=== PATIENT | male | born 1945 | race Caucasian/White ===

== ENCOUNTER 2018-10-24 08:25 | Observation (INO) ==
--- NOTE | 2018-10-24 08:31 | Emergency Department Note ---
Disposition Clinical Impression: Left hand paresthesia, Left facial numbness Disposition: Admitted As Inpatient Condition: Good General Adult HPI - General Chief complaint: ED Neuro Symptoms/Deficit Stated complaint: Left arm and facial numbness Time Seen by Provider: 10/24/18 08:29 Source: patient Limitations: no limitations - History of Present Illness Pain Scale: 0 - Related Data Home Medications Medication Instructions Recorded Confirmed Atorvastatin [Lipitor] 20 mg PO HS 01/08/17 10/24/18 Cholecalciferol (Vitamin D3) 2,000 unit PO DAILY 01/08/17 10/24/18 [Vitamin D] Multivitamin/Iron/Folic Acid 1 each PO DAILY 01/08/17 10/24/18 [Centrum Complete Multivit Tab] RX: Aspirin 81 mg PO DAILY 01/08/17 10/24/18 RX: Lisinopril-HCTZ 20-12.5 1 each PO DAILY 01/08/17 10/24/18 [Prinzide 20-12.5] Tamsulosin [Flomax] 0.4 mg PO HS 01/08/17 10/24/18 amLODIPine [Norvasc] 5 mg PO HS 01/08/17 10/24/18 Allergies Allergy/AdvReac Type Severity Reaction Status Date / Time No Known Allergies Allergy Verified 10/24/18 15:44 Past Medical History - Past Medical History Medical history: Reports: hyperlipidemia, hypertension Psychiatric history: Reports: no psych history - Social History Smoking Status: Never smoker Smokeless Tobacco Status: No Alcohol use: Reports: occasionally Drug use: Reports: none Physical Exam - General Limitations: no limitations General appearance: alert, in no apparent distress Course Vital Signs Temperature 97.5 F L 10/24/18 08:26 Pulse Rate 79 10/24/18 08:26 Respiratory Rate 18 10/24/18 08:26 Blood Pressure 145/56 10/24/18 08:26 O2 Sat by Pulse Oximetry 99 10/24/18 08:26 Temperature 98.0 F 10/24/18 16:09 Pulse Rate 54 10/24/18 16:09 Respiratory Rate 16 10/24/18 16:09 Blood Pressure 154/77 10/24/18 16:09 O2 Sat by Pulse Oximetry 98 10/24/18 16:09 Oxygen Delivery Oxygen Delivery Room Air Medical Decision Making - Lab Data Result diagrams: 10/24/18 08:30 10/24/18 08:30 Lab Results 10/24/18 10/24/18 10/24/18 Range/Units 08:30 08:30 08:30 WBC 7.8 (4.3-11.1) K/mcL RBC 4.86 (4.19-5.50) M/mcL Hgb 14.8 (12.9-16.9) g/dL Hct 43.9 (37.5-50.1) % MCV 90.3 (83.0-100.0) fL MCH 30.5 (28.0-33.3) pg MCHC 33.7 (31.6-35.5) g/dL RDW 13.5 (11.5-14.5) % Plt Count 175 (140-400) K/mcL MPV 9.9 (9.4-12.4) fL PT 11.4 (9.4-12.1) Seconds INR 1.0 APTT 29.6 (26.0-36.0) Seconds Sodium 140 (136-145) mEq/L Potassium 3.8 (3.5-5.1) mEq/L Chloride 105 (98-107) mEq/L Carbon Dioxide 28 (23-29) mEq/L BUN 13 (8-23) mg/dL Creatinine 0.89 (0.70-1.30) mg/dL Est GFR ( Amer) > 60 (> 60) Est GFR (Non-Af Amer) > 60 (> 60) BUN/Creatinine Ratio 15 (6-26) Glucose 204 H (70-105) mg/dL POC Glucose (70-99) mg/dL Est Mean Plasma Glucose mg/dl Hemoglobin A1c ( - 5.6) % Calculated Osmolality 296 (280-300) Calcium 8.8 (8.6-10.3) mg/dL Total Bilirubin 0.7 (0.3-1.0) mg/dL Direct Bilirubin 0.1 (0.0-0.2) mg/dL Indirect Bilirubin 0.6 (0.0-1.2) mg/dL AST 20 (13-39) Units/L ALT 19 (7-52) Units/L Alkaline Phosphatase 72 (34-104) Units/L Troponin I < 0.03 (< 0.04) ng/mL Serum Total Protein 6.2 L (6.4-8.9) g/dL Albumin 3.9 (3.5-5.7) g/dL Globulin 2.3 L (2.4-3.5) g/dL Albumin/Globulin Ratio 1.7 (1.1-2.2) Triglycerides 108 (< 150) mg/dL Cholesterol 114 (< 200) mg/dL LDL Cholesterol, Calc 49 (0-99) mg/dL VLDL Cholesterol, Calc 22 (< 31) mg/dL HDL Cholesterol 43 (40-59) mg/dL Cholesterol/HDL Ratio 2.7 (0-4.9) 10/24/18 10/24/18 Range/Units 08:30 08:32 WBC (4.3-11.1) K/mcL RBC (4.19-5.50) M/mcL Hgb (12.9-16.9) g/dL Hct (37.5-50.1) % MCV (83.0-100.0) fL MCH (28.0-33.3) pg MCHC (31.6-35.5) g/dL RDW (11.5-14.5) % Plt Count (140-400) K/mcL MPV (9.4-12.4) fL PT (9.4-12.1) Seconds INR APTT (26.0-36.0) Seconds Sodium (136-145) mEq/L Potassium (3.5-5.1) mEq/L Chloride (98-107) mEq/L Carbon Dioxide (23-29) mEq/L BUN (8-23) mg/dL Creatinine (0.70-1.30) mg/dL Est GFR ( Amer) (> 60) Est GFR (Non-Af Amer) (> 60) BUN/Creatinine Ratio (6-26) Glucose (70-105) mg/dL POC Glucose 181 H (70-99) mg/dL Est Mean Plasma Glucose 120 mg/dl Hemoglobin A1c 5.8 H ( - 5.6) % Calculated Osmolality (280-300) Calcium (8.6-10.3) mg/dL Total Bilirubin (0.3-1.0) mg/dL Direct Bilirubin (0.0-0.2) mg/dL Indirect Bilirubin (0.0-1.2) mg/dL AST (13-39) Units/L ALT (7-52) Units/L Alkaline Phosphatase (34-104) Units/L Troponin I (< 0.04) ng/mL Serum Total Protein (6.4-8.9) g/dL Albumin (3.5-5.7) g/dL Globulin (2.4-3.5) g/dL Albumin/Globulin Ratio (1.1-2.2) Triglycerides (< 150) mg/dL Cholesterol (< 200) mg/dL LDL Cholesterol, Calc (0-99) mg/dL VLDL Cholesterol, Calc (< 31) mg/dL HDL Cholesterol (40-59) mg/dL Cholesterol/HDL Ratio (0-4.9) Attestation Statement - Attestation Attestation: I examined this patient and my medical decision-making was reviewed with the Resident Physician. I agree with the documented findings, disposition and treatment plan as described except to the extent set forth below. [id number] time provided Patient arrives with symptoms that started approximately 30 minutes ago. He complains of left-sided face and upper extremity numbness and tingling. He appears in no acute distress on exam. Please see resident physician's note for detailed neurologic exam, including NIH score. Triage note and vitals reviewed by me I attest to supervising the resident physician's interpretation of ECG
--- NOTE | 2018-10-24 08:42 | Emergency Department Note ---
Disposition Clinical Impression: Left hand paresthesia, Left facial numbness Disposition: Admitted As Inpatient Condition: Good Referrals: Daljit Reyes MD [Primary Care Provider] - Forms: ED Satisfaction Letter Time of Disposition: 09:21 Neuro HPI - General Chief Complaint: ED Neuro Symptoms/Deficit Stated Complaint: Left arm and facial numbness Time Seen by Provider: 10/24/18 08:29 Source: patient, family Limitations: no limitations Nursing Notes Reviewed: Yes Vital Signs Reviewed: Yes - History of Present Illness HPI Narrative: 73-year-old male history of hypertension and hyperlipidemia presents with left arm numbness in facial numbness. States waken up around 0600, approx 3 hours prior to awakening. At that time he felt his normal self. Approximately 40 minutes prior to evaluation 0 800 patient reports using the restroom when he went to flush the toilet and felt numbness along his left hand that radiated up his body into his face. He denies any weakness. Did report some slurring of the speech. Denies any fall or head trauma. He reports a history of similar symptoms several years ago that resolved [place]. He takes a baby aspirin daily. Denies any other complaints such as fever, cough, chest pain, shortness of breath. Denies any neck pain. Onset of Symptoms Date: 10/24/18 Onset of Symptoms Time: 08:00 Symptom Onset Unknown: No Timing confirmed by: spouse Location: speech, left face, left arm History of same: Yes Severity: mild Quality: numbness, tingling, constant Symptoms Improving: Yes Improves with: time Context: sudden onset On Anticoagulants: No Associated symptoms: Reports: denies other symptoms Treatments Prior to Arrival: none - Related Data Home Medications: Home Medications Medication Instructions Recorded Confirmed Aspirin 81 mg PO DAILY 01/08/17 01/10/17 Atorvastatin [Lipitor] 20 mg PO HS 01/08/17 01/10/17 Cholecalciferol (Vitamin D3) 2,000 unit PO DAILY 01/08/17 01/10/17 [Vitamin D] Lisinopril-HCTZ 20-12.5 [Prinzide 1 each PO DAILY 01/08/17 01/10/17 20-12.5] Multivitamin/Iron/Folic Acid 1 each PO DAILY 01/08/17 01/10/17 [Centrum Complete Multivit Tab] Tamsulosin [Flomax] 0.4 mg PO DAILY 01/08/17 01/10/17 amLODIPine [Norvasc] 5 mg PO DAILY 01/08/17 01/10/17 Allergies/Adverse Reactions: Allergies Allergy/AdvReac Type Severity Reaction Status Date / Time No Known Allergies Allergy Verified 01/08/17 10:29 All systems ED: reviewed and negative except as stated. Review of Systems: As Per HPI Constitutional: Denies: fever, chills, weakness ENT ED: Denies: congestion Cardiovascular: Denies: chest pain Respiratory: Denies: dyspnea Gastrointestinal: Denies: abdominal pain, nausea, vomiting Genitourinary: Denies: dysuria Musculoskeletal: Denies: back pain, neck pain, myalgia Integumentary: Denies: rash, abrasion Neurological: Reports: numbness, paresthesias. Denies: headache, weakness, confusion Past Medical History - Past Medical History Attestation: Yes The following information was validated with the patient. Source: patient Medical history: Reports: hyperlipidemia, hypertension Psychiatric history: Reports: no psych history - Social History Smoking Status: Never smoker Smokeless Tobacco Status: No Alcohol use: Reports: occasionally Drug use: Reports: none Physical Exam - General Limitations: no limitations General appearance: alert, in no apparent distress - Head Head exam: atraumatic, normocephalic, normal inspection, other (bald) - Expanded Head Exam Head exam physicial: Present: abrasion (old healing abrasion to right forehead/scalp) - Eye Eye exam: Present: normal appearance, PERRL, EOMI. Absent: nystagmus - ENT ENT exam: normal exam, normal oropharynx, mucous membranes moist - Neck Neck exam: Present: normal inspection, full ROM, trachea midline. Absent: tenderness - Expanded Neck Exam Neck exam focused ED: Absent: midline tenderness - Chest Chest inspection: Present: normal inspection, symmetric chest wall rise - Respiratory Respiratory exam: Present: normal lung sounds bilaterally. Absent: respiratory distress, wheezes - Cardiovascular Cardiovascular exam: Present: regular rate, normal rhythm, normal heart sounds - Expanded Cardiovascular Exam Peripheral pulses: 2+: radial (R), radial (L) - Abdominal Exam Abdominal exam: Present: soft, Non-Tender, normal bowel sounds. Absent: tenderness, distention, guarding, rebound, rigidity - Extremities Exam Extremities exam: Present: normal inspection, full ROM. Absent: tenderness, pedal edema - Back Exam Back exam: Present: normal inspection, full ROM. Absent: tenderness - Neurological Exam Neurological exam: Present: alert, oriented X3, CN II-XII intact. Absent: motor sensory deficit - Expanded Neurological Exam Patient oriented to: Present: person, place, time Speech: Present: fluid speech Cranial nerves: EOM function (II, III, IV, ): Normal, facial sensation (V): Normal, facial palsy (VII): Normal, gag reflex (IX): Normal, spinal accessory function (XI): Normal, tongue deviation (XII): Normal Cerebellar function: finger to nose: Normal, heel to carson: Normal Motor strength - LUE: 5/5 Motor strength - RUE: 5/5 Motor strength - LLE: 5/5 Motor strength - RLE: 5/5 Upper motor neuron exam: ayaka neglect: Absent bilaterally, pronator drift: Absent bilaterally Sensory exam upper extremity: light touch: Normal Sensory exam lower extremity: light touch: Normal Coma Scale Eye Opening: Spontaneous Coma Scale Motor Response: Obeys Commands Coma Scale Verbal Response: Oriented Coma Scale Total: 15 - Psychiatric Psychiatric exam: Present: normal affect, normal mood - Skin Skin exam: Present: warm, dry, intact, normal color. Absent: rash, cyanosis, diaphoresis Course Course Narrative: Stroke alert was initiated. Last well-known 0 800. Patient has subjective paresthesias. His current NIH score is 0. Neurologic exam is normal without focal deficits. There is no facial droop. His initial blood glucose 181. - Consultations Consultation #1: Spoke with [facility] Radiologist Dr. Adamson, negative for intracranial hemorrhage. Time: 08:56 Consultation #2: Labs unremarkable. Patient was evaluated in conjunction with [facility] neurology Dr. Cathy Pettit who recommends admission for further stroke workup. Patient is not a TPA candidate at this time given the mild symptoms. Patient will be given aspirin and admitted for stroke workup. Impression is left side paresthesia. Time: 09:19 Consultation #3: Spoke with on-call hospitalist Dr. Whitley, ok to admit for left side paresthesia to rule out CVA. No further orders at this time Time: 09:32 Vital Signs Temperature 97.5 F L 10/24/18 08:26 Pulse Rate 79 10/24/18 08:26 Respiratory Rate 18 04/20/19 08:26 Blood Pressure 145/56 04/20/19 08:26 O2 Sat by Pulse Oximetry 99 10/24/18 08:26 Temperature 97.5 F L 10/24/18 08:26 Pulse Rate 67 10/24/18 08:35 Respiratory Rate 14 10/24/18 08:35 Blood Pressure 135/64 10/24/18 08:35 O2 Sat by Pulse Oximetry 99 10/24/18 08:26 Oxygen Delivery Oxygen Delivery Room Air Neuro Symptoms/Deficit - MDM Narrative Medical decision making narrative: Patient was discussed with my attending physician who agrees with ED management and final disposition. They independently evaluated the patient. Please refer to their attestation to this encounter for additional information. This note was generated by [employer] voice recognition software and as a result grammatical or spelling errors may occur using this program. - Medical Records Medical records reviewed: Yes I reviewed the patient's medical records. - Lab Data Lab results reviewed: Yes I reviewed the patient's lab results. Result diagrams: 10/24/18 08:30 10/24/18 08:30 Lab Results 10/24/18 10/24/18 10/24/18 Range/Units 08:30 08:30 08:30 WBC 7.8 (4.3-11.1) K/mcL RBC 4.86 (4.19-5.50) M/mcL Hgb 14.8 (12.9-16.9) g/dL Hct 43.9 (37.5-50.1) % MCV 90.3 (83.0-100.0) fL MCH 30.5 (28.0-33.3) pg MCHC 33.7 (31.6-35.5) g/dL RDW 13.5 (11.5-14.5) % Plt Count 175 (140-400) K/mcL MPV 9.9 (9.4-12.4) fL PT 11.4 (9.4-12.1) Seconds INR 1.0 APTT 29.6 (26.0-36.0) Seconds Sodium 140 (136-145) mEq/L Potassium 3.8 (3.5-5.1) mEq/L Chloride 105 (98-107) mEq/L Carbon Dioxide 28 (23-29) mEq/L BUN 13 (8-23) mg/dL Creatinine 0.89 (0.70-1.30) mg/dL Est GFR ( Amer) > 60 (> 60) Est GFR (Non-Af Amer) > 60 (> 60) BUN/Creatinine Ratio 15 (6-26) Glucose 204 H (70-105) mg/dL POC Glucose (70-99) mg/dL Calculated Osmolality 296 (280-300) Calcium 8.8 (8.6-10.3) mg/dL Troponin I < 0.03 (< 0.04) ng/mL 10/24/18 Range/Units 08:32 WBC (4.3-11.1) K/mcL RBC (4.19-5.50) M/mcL Hgb (12.9-16.9) g/dL Hct (37.5-50.1) % MCV (83.0-100.0) fL MCH (28.0-33.3) pg MCHC (31.6-35.5) g/dL RDW (11.5-14.5) % Plt Count (140-400) K/mcL MPV (9.4-12.4) fL PT (9.4-12.1) Seconds INR APTT (26.0-36.0) Seconds Sodium (136-145) mEq/L Potassium (3.5-5.1) mEq/L Chloride (98-107) mEq/L Carbon Dioxide (23-29) mEq/L BUN (8-23) mg/dL Creatinine (0.70-1.30) mg/dL Est GFR ( Amer) (> 60) Est GFR (Non-Af Amer) (> 60) BUN/Creatinine Ratio (6-26) Glucose (70-105) mg/dL POC Glucose 181 H (70-99) mg/dL Calculated Osmolality (280-300) Calcium (8.6-10.3) mg/dL Troponin I (< 0.04) ng/mL - Radiology Data Radiology results reviewed: Yes I reviewed the patient's radiology results. Head CT 10/24/18 08:33 IMPRESSION: No acute intracranial abnormality. Chronic white matter microangiopathic ischemic changes. D/ / Duane Adamson MD / Duane Adamson MD Interpreting Provider: Duane Adamson MD - EKG Data EKG attestation: Yes I reviewed and interpreted this EKG. EKG results narrative: EKG performed 08 normal sinus rhythm 70 beats per minute, good R wave p rogression, no ST elevation or depression, intervals appear within normal limits. Compared to prior EKG performed 10/02/2010 with similar consistent findings of sinus bradycardia. No acute ischemic changes. NIH Stroke Scale - Level of Consciousness LOC: Alert - LOC Questions LOC Questions: Answers both correctly - LOC Commands LOC Commands: Performs both correctly - Best Gaze Best Gaze: Normal - Visual Visual: No visual loss - Facial Palsy Facial Palsy: Normal - Motor Arms Motor Arm-Left: No drift for 10 seconds Motor Arm-Right: No drift for 10 seconds - Motor Legs Motor Leg-Left: No drift for 5 seconds Motor Leg-Right: No drift for 5 seconds - Limb Ataxia Limb Ataxia: Absent of affected limb too weak to perform exam - Sensory Sensory: Normal - Best Language Best Language: No aphasia - Dysarthria Dysarthria: Normal - Extinction and Inattention Extinction and Inattention: Normal - NIHSS Total Score NIHSS Total Score: 0 TPA Checklist - Eligibilty for IV tPA 1. LKW equal to or less than 4.5 hours be before treatment: Yes 2. Clinical diagnosis of ischemic stroke causing deficit: Yes 3. Age 18 years or older: Yes - Contraindications 4. Evidence of intracranial hemorrhage on pretreatment CT: No 5. Presentation suggests subarachnoid hem, even if CT normal: No 6. CT shows multilobar infarction: No 7. Known neoplasm, arteriovenous malformation, or aneurysm: No 8. Significant head trauma (w/ LOC) or CVA in last 3 months: No 9. BP elevated (systolic > 185 or diastolic > 110): No 10. Abnormal Blood Glucose (<50 or >400mg/dl): No 11. Active internal bleeding [PM.TPA15]: No 12. Known bleeding risk (including; not limited to 13-15): No 13. Heparin/argatroban/bivalirudin w/in 48hrs & PTT > normal: No 14. Platelet count less than 100,000/MM3: No 15. Current or recent use of anticoagualants (see protocol): No - Warnings/Precautions Considerations 16. Prior ischemic stroke within last 3 months: No 17. Recent history of intracranial hemorrhage: No 18. : No 19. Current/recent use Effient (7 days) or Brilinta (5 days): No 20. Arterial puncture at non compressible site or LP >7days: No 21. Major surgery or serious trauma in last 14 days: No 22. GI or urinary tract hemorrhage in last 21 days: No 23. LA involving left anterior myocardium in last 3 months: No 24. Suspected or known infective endocarditis/pericarditis: No - LKW: 3-4.5 hrs Add. Warnings/Precautions 21. oral anticoag other than warfarin regardles of last dose: No Patient/family understanding: The patient/family members have been counseled and understood the risk, benefit, and alternatives of treatment.
[2018-10-24 08:46] LABS: Hematocrit 43.9 % (37.5-50.1); Hemoglobin 14.8 g/dL (12.9-16.9); Mean Corpuscular HGB Conc 33.7 g/dL (31.6-35.5); Mean Corpuscular Hemoglobin 30.5 pg (28.0-33.3); Mean Corpuscular Volume 90.3 fL (83.0-100.0); Mean Platelet Volume 9.9 fL (9.4-12.4); Platelet Count 175 K/mcL (140-400); Red Blood Count 4.86 M/mcL (4.19-5.50); Red Cell Distribution Width 13.5 % (11.5-14.5)
[2018-10-24 08:59] LABS: Prothrombin Time 11.4 Seconds (9.4-12.1)
[2018-10-24 09:01] LABS: Activated Partial Thrombo Time 29.6 Seconds (26.0-36.0)
[2018-10-24 09:06] LABS: BUN/Creatinine Ratio 15 (6-26); Blood Urea Nitrogen 13 mg/dL (8-23); Calcium 8.8 mg/dL (8.6-10.3); Carbon Dioxide 28 mEq/L (23-29); Chloride 105 mEq/L (98-107); Glucose 204 mg/dL (70-105); Osmolality,Calculated 296 (280-300); Potassium 3.8 mEq/L (3.5-5.1); Sodium 140 mEq/L (136-145); eGFR For Non-African Americans > 60 (> 60)
[2018-10-24 09:08] LABS: Troponin I < 0.03 ng/mL (< 0.04)
[2018-10-24] MEDS ORDERED: Aspirin 325 MG TABLET PO ONE (09:13)
[2018-10-24] MEDS ORDERED: traMADol 50 MG TABLET PO PRN (09:51)
[2018-10-24] MEDS ORDERED: Naloxone 0.4 MG/ML INJ IVP PRN (09:51)
--- NOTE | 2018-10-24 13:10 | Internal Med History&Physical ---
Date of Encounter: 10/24/18 Time of Encounter: 13:02 Internal Medicine - H&P: HPI Chief complaint: left sided numbness Admitted From: Home Plans for Post Hospital Care: Home History of present illness: Mr. Bradford is a 73 year old male PMH of HTN, HLD, and BPH. patient presented to the ED due to left upper extremities numbness and weakness. Patient reports today morning he woke and went to the restroom, after having a BM when he tried to flush the toilet he noticed that he was weak on his left arm and was not able to flush the toilet using the left arm. He also report numbness in the left arm radiating to his Jaw. He also reported he noticed his speech was a little slurred, denies focal weakness in any other area of his body. Report having a slight headache, denies nausea, vomiting or abdominal pain. Denies chest pain or shortness of breath. Denies light headedness or palpitation prior to this event. Past Med Surg Social Fam HX - Past Medical History Medical history: hyperlipidemia, hypertension Psychiatric history: no psych history - Past Surgical History Additional surgical history: Rt shoulder cuff repair. - Social History Smoking Status: Former smoker Smokeless Tobacco Status: No Alcohol use: occasionally Drug use: none - Family History Mother Living Status: Age at : 70 Cause of : unkown Hx Family Cardiac Disorders: Yes (carotid artery stenosis.) Hx Family Respiratory Disorders: No Hx Family Cancer: No Hx Family GI Disorders: No Hx Family Genitourinary Disorders: No Hx Family Endocrine Disorder: Yes (DM) Hx Family Musculoskeletal Disorders: Yes Hx Family Neuromuscular Disorders: No Hx Family Neurologic Disorders: No Hx Family HEENT Disorders: No Hx Family Autoimmune Disorders: No Hx Family Reproductive Disorders: No Hx Family Psychosocial Disorders: No Hx Family Medical Disorders: No Father Living Status: Age at : 80 Hx Family Cardiac Disorders: Yes Hx Family Respiratory Disorders: No Hx Family Cancer: No Hx Family GI Disorders: No Hx Family Genitourinary Disorders: No Hx Family Endocrine Disorder: No Hx Family Musculoskeletal Disorders: No Hx Family Neuromuscular Disorders: No Hx Family Neurologic Disorders: Yes (brain anyursem.) Hx Family HEENT Disorders: No Hx Family Autoimmune Disorders: No Hx Family Reproductive Disorders: No Hx Family Psychosocial Disorders: No Hx Family Medical Disorders: No Internal Medicine - H&P: Meds Aspirin 81 mg PO DAILY 01/08/17 [History] Atorvastatin [Lipitor] 20 mg PO HS 01/08/17 [History] Cholecalciferol (Vitamin D3) [Vitamin D] 2,000 unit PO DAILY 01/08/17 [History] Lisinopril-HCTZ 20-12.5 [Prinzide 20-12.5] 1 each PO DAILY 01/08/17 [History] Multivitamin/Iron/Folic Acid [Centrum Complete Multivit Tab] 1 each PO DAILY 01/08/17 [History] Tamsulosin [Flomax] 0.4 mg PO HS 01/08/17 [History] amLODIPine [Norvasc] 5 mg PO HS 01/08/17 [History] Allergy/AdvReac Type Severity Reaction Status Date / Time No Known Allergies Allergy Verified 01/08/17 10:29 All Systems PM: A 10-system review of systems was performed and is negative for pertinent findings except as documented above in the HPI. - Constitutional Constitutional: no chills, no fever(s), no weakness - EENT Eyes: no blurry vision, no change in vision, no irritation Nose, mouth and throat: no sore throat, no tongue swelling - Cardiovascular Cardiovascular ROS IM: no chest pain, no edema, no palpitations - Respiratory Respiratory: no cough, no wheezing - Gastrointestinal Gastrointestinal: no abdominal pain, no nausea, no tenesmus - Genitourinary Genitourinary ROS male: no nocturia, no urinary frequency, no urinary hesitancy, no urinary incontinence, no urinary urgency - Musculoskeletal Musculoskeletal ROS IM: muscle weakness, numbness, no tingling - Integumentary Integumentary IM: no erythema, no rash - Neurological Neurological ROS: focal weakness, no abnormal gait, no frequent falls - Psychiatric Psychiatric: no hallucinations, no irritability - Endocrine Endocrine IM: no cold intolerance, no excessive sweating - Hematologic/Lymphatic Hematologic/Lymphatic: no lymphadenopathy - Allergic/Immunologic Allergic/Immunologic: no wheezing Additional comments: Rest of a 10 review of system negative - Constitutional Vitals: Temp Pulse Resp BP Pulse Ox 97.7 F 56 17 124/71 99 10/24/18 11:39 10/24/18 11:39 10/24/18 11:39 10/24/18 11:39 10/24/18 11:39 Exam: General: Patient is alert, oriented x4. In no distress Head: atraumatic, normocephalic, Neck: normal inspection, trachea midline, full ROM, no carotid bruits Respiratory: Good respiratory effort. Clear to auscultation bilaterally, no wheezing rales or crackles. Cardiovascular: RRR, normal s1 and s2 No clicks, rubs, gallops, or murmors. Abdomen: Bowel sounds present normoactive x-4 quadrants. Abdomen is soft, nondistended. No guarding or rebound. No organomegaly noted musculoskeletal: Spontaneously moving all extremities. no edema, no calf tenderness Skin: warm, dry, intact. Neuro: Sensation light touch intact. Cranial nerves 2-12 is intact. Not aphasic, rapid hand movements intact, [id number] intact, Psych: Patient's affect is normal Internal Med - H&P Results - Labs CBC & Chem 7: 10/24/18 08:30 10/24/18 08:30 Labs: Short CBC 10/24/18 Range/Units 08:30 WBC 7.8 (4.3-11.1) K/mcL Hgb 14.8 (12.9-16.9) g/dL Hct 43.9 (37.5-50.1) % Plt Count 175 (140-400) K/mcL BMP 10/24/18 08:30 Sodium 140 Potassium 3.8 Chloride 105 Carbon Dioxide 28 BUN 13 Creatinine 0.89 Glucose 204 H Calcium 8.8 Cardiac Enzymes 10/24/18 Range/Units 08:30 Troponin I < 0.03 (< 0.04) ng/mL - Impressions ITS Impressions Head CT 10/24/18 08:33 IMPRESSION: No acute intracranial abnormality. Chronic white matter microangiopathic ischemic changes. D/ / Duane Adamson MD / Duane Adamson MD Interpreting Provider: Duane Adamson MD Brain MRI 10/24/18 09:55 IMPRESSION: No acute intracranial abnormality. Mild chronic microvascular disease. D/ / Prasad Mejia MD / Prasad Mejia MD Interpreting Provider: Prasad Mejia MD - Assessment and Plan (1) Left hand paresthesia Current Visit: Yes Status: Acute Assessment and plan: Associated with slurred speech. Possible secondary to TIA. symptoms resolved. Plan MRI of the brain Severe Neurology consult pending MRI report. Started on Aspirin 81mg/PO daily Lipid panel A1C NPO until bedside swallow evaluation PT/OT carotid dupplex ordered (2) Left facial numbness Current Visit: Yes Status: Acute Assessment and plan: Plan of care as above. (3) HLD (hyperlipidemia) Current Visit: Yes Status: Chronic Assessment and plan: continue atorvastatin 20 mg by mouth Qualifiers: Hyperlipidemia type: unspecified Qualified Code(s): E78.5 - Hyperlipidemia, unspecified (4) HTN (hypertension) Current Visit: Yes Status: Chronic Assessment and plan: Blood pressure is well controlled on amlodipine. Lisinopril and hydrochlorothiazide. Resume home medication. Qualifiers: Hypertension type: unspecified Qualified Code(s): I10 - Essential (primary) hypertension (5) DVT prophylaxis Current Visit: Yes Status: Chronic Assessment and plan: Started on heparin subcutaneous. (6) BPH (benign prostatic hyperplasia) Current Visit: Yes Status: Chronic Assessment and plan: On tamsulosin 0.4 mg by mouth daily. Qualifiers: Lower urinary tract symptom presence: unspecified whether lower urinary tract symptoms present Qualified Code(s): N40.0 - Benign prostatic hyperplasia without lower urinary tract symptoms - Time Spent With Patient Total time spent is greater than 50% in coordination of care (as documented) at patient's floor/unit and/or counseling patient: Greater than 35 minutes (40)
[2018-10-24 14:09] LABS: Alanine Aminotransferase 19 Units/L (7-52); Albumin 3.9 g/dL (3.5-5.7); Albumin/Globulin Ratio 1.7 (1.1-2.2); Alkaline Phosphatase 72 Units/L (34-104); Aspartate Amino Transferase 20 Units/L (13-39); Bilirubin,Direct 0.1 mg/dL (0.0-0.2); Bilirubin,Indirect 0.6 mg/dL (0.0-1.2); Bilirubin,Total 0.7 mg/dL (0.3-1.0); Chol/HDL Ratio 2.7 (0-4.9); Cholesterol 114 mg/dL (< 200); Globulin 2.3 g/dL (2.4-3.5); HDL Cholesterol 43 mg/dL (40-59); LDL Cholesterol,Calculated 49 mg/dL (0-99); Total Protein 6.2 g/dL (6.4-8.9); Triglycerides 108 mg/dL (< 150)
[2018-10-24 14:31] LABS: Estimated Average Glucose 120 mg/dl; Hemoglobin A1C 5.8 %
[2018-10-24] MEDS: *HR* Heparin 5,000 UNIT/ML VIAL SQ SCH ×2 (15:04→22:13)
[2018-10-24] MEDS: amLODIPine 5 MG TABLET PO SCH (22:10)
[2018-10-25 04:59] LABS: Basophils # 0.1 K/mcL (0.0-0.2); Basophils % 0.8 %; Eosinophils # 0.3 K/mcL (0.0-0.6); Eosinophils % 2.8 %; Immature Granulocytes % 0.3 % (0-4); Lymphocytes # 3.1 K/mcL (0.6-4.6); Lymphocytes % 31.6 %; Mean Corpuscular HGB Conc 33.3 g/dL (31.6-35.5); Mean Corpuscular Hemoglobin 30.4 pg (28.0-33.3); Mean Corpuscular Volume 91.3 fL (83.0-100.0); Mean Platelet Volume 10.5 fL (9.4-12.4); Monocytes # 0.9 K/mcL (0.0-1.3); Monocytes % 9.4 %; Neutrophils # 5.4 K/mcL (1.6-8.9); Platelet Count 196 K/mcL (140-400); Red Blood Count 4.93 M/mcL (4.19-5.50); Red Cell Distribution Width 13.7 % (11.5-14.5); Segmented Neutrophils % 55.1 %
[2018-10-25 05:16] LABS: BUN/Creatinine Ratio 14 (6-26); Blood Urea Nitrogen 12 mg/dL (8-23); Calcium 8.9 mg/dL (8.6-10.3); Carbon Dioxide 27 mEq/L (23-29); Chloride 105 mEq/L (98-107); Glucose 81 mg/dL (70-105); Magnesium 2.2 mg/dL (1.6-2.6); Osmolality,Calculated 291 (280-300); Phosphorous 3.4 mg/dL (2.7-4.5); Potassium 3.8 mEq/L (3.5-5.1); Sodium 141 mEq/L (136-145); eGFR For Non-African Americans > 60 (> 60)
[2018-10-25] MEDS: *HR* Heparin 5,000 UNIT/ML VIAL SQ SCH ×3 (05:18→20:28)
[2018-10-25] MEDS ORDERED: amLODIPine 5 MG TABLET PO SCH (09:00)
--- NOTE | 2018-10-25 09:18 | Internal Med Progress Note ---
Hospitalist Progress Note - Encounter Date of Encounter: 10/25/18 Time of Encounter: 09:40 - Subjective Interval History: awakwe, at bedside. LUE weakness, numbness, facial numbness and slurred speech completely resolved. no cp, pressure, sob or headache. feeling like left shoulder is sore. denies injury. now gives addl history of c5-c6 disc disease in past on CT and that since he has intermittently had these symptoms, approx once a decade, and sxs yesterday are consistent with prior episodes. - Exam Vitals: Temp Pulse Resp BP Pulse Ox 98.7 F 61 16 126/69 97 10/25/18 07:38 10/25/18 07:38 10/25/18 07:38 10/25/18 07:38 10/25/18 07:38 Exam: gen- alert, awake,appears stated age eyes- pupils equal round , eom intact cv- reg rate and rhythm, normal s1,s2, no murmurs appreciated, no le edema lungs- ctabl, no wheezing, rhonchi or crackles, normal resp effort on room air abd- soft, non tender, non distended, + bs msk- neck rom intact and painless neuro- AAOx3, CN grossly intact, no focal deficits, strenght 5/5 in bl UE, sensation intact and equal to light touch in BL UE - Assessment and Plan (1) Left arm weakness Current Visit: Yes Status: Acute (2) Left facial numbness Current Visit: Yes Status: Acute (3) HLD (hyperlipidemia) Current Visit: Yes Status: Chronic (4) HTN (hypertension) Current Visit: Yes Status: Chronic (5) DVT prophylaxis Current Visit: Yes Status: Chronic (6) BPH (benign prostatic hyperplasia) Current Visit: Yes Status: Chronic - Summary of Assessment and Plan Summary of Assessment and Plan: 1. LUE weakness and paraesthesias Facial numbness Slurred speech ALL RESOLVED seems most consistent with TIA at this point, but will rule out cervical spine disease given hx disc disease at c5-c6 level in past -MRI and CT head reviewed and without acute changes, chonric microvascular disease present -CUS reviewed and without significant lesions -order TTE -Order CT neck -A1C and lipids reviewed and at goal -cont asa, statin -PT/OT eval pending 2. HTN- cont home acei + norvasc, add back home HCTZ as needed as low normotensive currently, fu with pcp vte ppx sq hep - Time Spent with Patient Total time spent is greater than 50% in coordination of care (as documented) at patient's floor/unit and/or counseling patient: Internal Medicine: Result - Labs CBC & Chem 7: 10/25/18 03:20 10/25/18 03:20 Labs: Short CBC 10/25/18 Range/Units 03:20 WBC 9.9 (4.3-11.1) K/mcL Hgb 15.0 (12.9-16.9) g/dL Hct 45.0 (37.5-50.1) % Plt Count 196 (140-400) K/mcL Neutrophils # 5.4 (1.6-8.9) K/mcL BMP 10/24/18 10/25/18 08:30 03:20 Sodium 140 141 Potassium 3.8 3.8 Chloride 105 105 Carbon Dioxide 28 27 BUN 13 12 Creatinine 0.89 0.87 Glucose 204 H 81 Calcium 8.8 8.9 Cardiac Enzymes 10/24/18 Range/Units 08:30 Troponin I < 0.03 (< 0.04) ng/mL Liver Function 10/24/18 Range/Units 08:30 Total Bilirubin 0.7 (0.3-1.0) mg/dL Direct Bilirubin 0.1 (0.0-0.2) mg/dL AST 20 (13-39) Units/L ALT 19 (7-52) Units/L Alkaline Phosphatase 72 (34-104) Units/L Albumin 3.9 (3.5-5.7) g/dL - ABG Interpretation ABG results: PT/INR, D-dimer PT 11.4 Seconds (9.4-12.1) 10/24/18 08:30 - Impressions Impressions Brain MRI 10/24/18 09:55 IMPRESSION: No acute intracranial abnormality. Mild chronic microvascular disease. D/ / Prasad Mejia MD / Prasad Mejia MD Interpreting Provider: Prasad Mejia MD Consult Discharge Plan - Plan Referrals: Daljit Reyes MD [Primary Care Provider] - (3) HLD (hyperlipidemia) Qualifiers: Hyperlipidemia type: unspecified Qualified Code(s): E78.5 - Hyperlipidemia, unspecified (4) HTN (hypertension) Qualifiers: Hypertension type: unspecified Qualified Code(s): I10 - Essential (primary) hypertension (6) BPH (benign prostatic hyperplasia) Qualifiers: Lower urinary tract symptom presence: unspecified whether lower urinary tract symptoms present Qualified Code(s): N40.0 - Benign prostatic hyperplasia without lower urinary tract symptoms
[2018-10-25] MEDS: Aspirin Enteric Coated 81 MG Tablet PO SCH (09:37)
[2018-10-25] MEDS: Lisinopril-HCTZ 20-12.5mg TABLET PO SCH (09:37)
[2018-10-25] MEDS: Cholecalciferol (D-3) 1,000 UNIT TABLET PO SCH (09:37)
--- NOTE | 2018-10-25 10:00 | Electrocardiograph Report ---
[address] [address] Test Date: 2018-10-24 Pat Name: Leon Bradford Department: EXAM2 Room: 3B39 Gender: M [employer]: : 1945 Requested By: Go Ferguson Order Number: [id number] Reading MD: Robles Rojas Measurements Intervals [place] Rate: 70 P: 72 MN: 153 QRS: -44 QRSD: 113 T: 60 QT: 412 QTc: 445 Interpretive Statements Sinus rhythm Electronically Signed On 10-25-2018 9:58:38 EDT by Robles Rojas
[2018-10-25] MEDS: amLODIPine 5 MG TABLET PO SCH (20:28)
[2018-10-26] MEDS: *HR* Heparin 5,000 UNIT/ML VIAL SQ SCH (06:02)
[2018-10-26 07:49] VITALS: BP 126/71
--- NOTE | 2018-10-26 08:55 | Discharge Summary ---
<Adrian Royal - Last Filed: 10/26/18 08:53> - NOTES TO OUTPATIENT PROVIDER Notes to Outpatient Provider: PCP needs to follow up on c-spine ct scan. Orders not resulted at time of discharge: Pending orders 10/25/18 09:22 EV echocardiogram Routine Date of Encounter: 10/26/18 Time of Encounter: 08:53 - Discharge Diagnosis (1) Left hand paresthesia Priority: Primary Status: Resolved (2) Left facial numbness Priority: Secondary Status: Resolved (3) HLD (hyperlipidemia) Priority: Secondary Status: Chronic Qualifiers: Hyperlipidemia type: unspecified Qualified Code(s): E78.5 - Hyperlipidemia, unspecified (4) HTN (hypertension) Priority: Secondary Status: Chronic Qualifiers: Hypertension type: unspecified Qualified Code(s): I10 - Essential (primary) hypertension (5) DVT prophylaxis Priority: Secondary Status: Chronic (6) BPH (benign prostatic hyperplasia) Priority: Secondary Status: Chronic Qualifiers: Lower urinary tract symptom presence: unspecified whether lower urinary tract symptoms present Qualified Code(s): N40.0 - Benign prostatic hyperplasia without lower urinary tract symptoms Hospital course: Mr. Bradford is a 73 year old male presented with chief complaint of left-sided numbness and weakness. Patient initially noticed this after he had a bowel movement and try to flush the toilet but was unable to due to left arm weakness. He also had left arm numbness radiating to the jaw. He also reported his speech was slurred with slurred. Patient underwent workup for TIA/stroke. CT head was negative. MRI was negative, lipid panel was normal, hemoglobin A1c was 5.8, bilateral carotid duplex showed minimal plaque. EKG was normal sinus rhythm. Patient symptoms resolved within 24 hours. Day 2 of admission patient reported that he has had a history of these symptoms and has a history of C5-C6 disc disease. He underwent CT C-spine which showed mild degenerative disc and joint disease of cervical spine most pronounced at C5-6. Patient is ambulatory this m orn. He is tolerating his diet. He is awaiting his echocardiogram. He will be discharged home and will follow-up with his PCP for follow-up on C-spine results is likely patient's left arm weakness and numbness is due to this as there is no evidence of CVA. Discharge discussed with: patient - Time Spent with Patient Total time spent providing and/or coordinating discharge services: - Discharge Medications Prescriptions: Continue amLODIPine [Norvasc] 5 mg PO HS Tamsulosin [Flomax] 0.4 mg PO HS Atorvastatin [Lipitor] 20 mg PO HS Aspirin 81 mg PO DAILY Multivitamin/Iron/Folic Acid [Centrum Complete Multivit Tab] 1 each PO DAILY Lisinopril-HCTZ 20-12.5 [Prinzide 20-12.5] 1 each PO DAILY Cholecalciferol (Vitamin D3) [Vitamin D3] 2,000 unit PO DAILY Home Medications: Aspirin 81 mg PO DAILY 01/08/17 [History] Atorvastatin [Lipitor] 20 mg PO HS 01/08/17 [History] Cholecalciferol (Vitamin D3) [Vitamin D3] 2,000 unit PO DAILY 01/08/17 [History] Lisinopril-HCTZ 20-12.5 [Prinzide 20-12.5] 1 each PO DAILY 01/08/17 [History] Multivitamin/Iron/Folic Acid [Centrum Complete Multivit Tab] 1 each PO DAILY 01/08/17 [History] Tamsulosin [Flomax] 0.4 mg PO HS 01/08/17 [History] amLODIPine [Norvasc] 5 mg PO HS 01/08/17 [History] Allergies/Adverse Reactions: Allergy/AdvReac Type Severity Reaction Status Date / Time No Known Allergies Allergy Verified 10/24/18 15:44 Date of admission: 10/24/18 09:50 Primary care physician: Daljit Reyes MD Discharging clinician: Adrian Royal Anticipated date of discharge: 10/26/18 - Constitutional Vitals: Temp Pulse Resp BP Pulse Ox 97.5 F L 66 16 126/71 95 10/26/18 07:45 10/26/18 07:45 10/26/18 07:45 10/26/18 07:45 10/26/18 07:45 Exam: General: pleasant, without distress, Cardiovascualr: Regular rate and rhythm with no murmur, absent gallops or rubs, absent pedal edema, radial pulses 2 out of 4 Lungs: Clear to auscultation bilaterally, not in respiratory distress Abdomen: Soft nontender, nondistended positive bowel sounds, absent hepatomegaly Skin: warm and dry, absent rash, absent open wounds and nodules MSK: absent clubbing, cyanosis, joints without swelling Neuro: Cranial nerves II through XII intact, UE and LE sensation equal bilaterally, UE and LEstrength 5/5, alert oriented 3, gait intact Psych: good insight and judgment - Patient Status Disposition: Home, Self-Care Condition: Good Functional capacity at discharge: independent ambulation Overall status at discharge: patient is progressing back to baseline - Discharge Instructions Instructions: Chronic Hypertension (DC) Follow Up With: Daljit Reyes MD [Primary Care Provider] - 11/02/18 2:30 pm - Diet and Activity Activity: increase activity as tolerated Diet: advance to your usual diet <Raysa Crum - Last Filed: 10/26/18 12:44> Date of Encounter: 10/26/18 - Discharge Diagnosis (1) Left arm weakness Status: Acute (2) Left facial numbness Status: Resolved (3) HLD (hyperlipidemia) Status: Chronic Qualifiers: Hyperlipidemia type: unspecified Qualified Code(s): E78.5 - Hyperlipidemia, unspecified (4) HTN (hypertension) Status: Chronic Qualifiers: Hypertension type: unspecified Qualified Code(s): I10 - Essential (primary) hypertension (5) DVT prophylaxis Status: Chronic (6) BPH (benign prostatic hyperplasia) Status: Chronic Qualifiers: Lower urinary tract symptom presence: unspecified whether lower urinary tract symptoms present Qualified Code(s): N40.0 - Benign prostatic hyperplasia without lower urinary tract symptoms Hospital course: Mr. Bradford is a 73 year old male - Time Spent with Patient Total time spent providing and/or coordinating discharge services: Time spent: Greater than 30 minutes (35 min) Date of admission: 10/24/18 09:50 Primary care physician: Daljit Reyes MD - Constitutional Vitals: Temp Pulse Resp BP Pulse Ox 97.5 F L 66 16 126/71 95 10/26/18 07:45 10/26/18 07:45 10/26/18 07:45 10/26/18 07:45 10/26/18 07:45 - Patient Status Overall status at discharge: patient is back to baseline - Attending Attestation I examined this patient and my medical decision-making was reviewed with the Resident Physician Dr Royal. I agree with the documented findings, disposition and treatment plan as described except to the extent set forth below. Mr Bradford was being observed for left arm weakness/numbness awake, family present, very pleasant, has remained without sxs since admission. feeling baseline. no neck pain. results of ct scan reviewed. He will follow up with his [place] [facility] PCP for further work up outpt. All discharge questions answered and pt very eager to dc to home gen- alert, awake,appears stated age cv- reg rate and rhythm, normal s1,s2 lungs- ctabl, normal resp effort on room air msk- neck rom intact and painless neuro- AAOx3, CN grossly intact, no focal deficits, strength 5/5 in bl UE 1. LUE weakness and paraesthesias Facial numbness Slurred speech ALL RESOLVED seems most consistent with TIA at this point, may be related to chronic cervical spine disease given hx disc disease at c5-c6 level in past and CT findings here of bone spur and arthritis -MRI and CT head reviewed and without acute changes, chronic microvascular disease present -CUS reviewed and without significant lesions -echo unremarkable -A1C and lipids reviewed and at goal -cont asa, statin - no pt needs 2. HTN- may resume home meds on dc and fu with pcp further diagnoses and plan as noted by resident time spent on dc 35 min
[2018-10-26] MEDS: Lisinopril-HCTZ 20-12.5mg TABLET PO SCH (10:08)
[2018-10-26] MEDS: Aspirin Enteric Coated 81 MG Tablet PO SCH (10:08)
[2018-10-26] MEDS: Cholecalciferol (D-3) 1,000 UNIT TABLET PO SCH (10:08)
== END 2018-10-26 12:04 | disposition home or self-care (01) ==
LOC: 3BNU 08:25 → EMEROOARM 08:25 → SUATTDRO 09:50 → 3BNU 10:45
PROVIDERS: ADMIT Internal Medicine; ATTEND Internal Medicine